=== PATIENT | male | born 1995 | race Caucasian/White ===

== ENCOUNTER → 2018-02-22 | Outpatient (REF) | payer BC | LOC: M SFHCLERA 11:09 | DX: R53.81 Other malaise (principal) ==

== ENCOUNTER → 2018-02-22 | Outpatient (CLI) | payer BC | LOC: M LRY 11:14 | DX: R06.2 Wheezing (principal) | CPT/HCPCS: 71046 ==

== ENCOUNTER → 2018-04-04 | Outpatient (REF) | payer BC | LOC: M SFHCLERA 18:48 | PROVIDERS: ATTEND Physician Assistant | DX: R50.9 Fever, unspecified (principal) ==

== ENCOUNTER → 2018-04-26 | Outpatient (CLI) | payer SELFPAY ==
--- NOTE | 2018-04-26 13:18 | REP ---
RIGHT SCAPULA, TWO VIEWS: HISTORY: Injury. There is no acute fracture or dislocation. The joint spaces are normal in appearance. IMPRESSION:There is no acute fracture or dislocation. Electronically Signed by Storm Pavon MD 04/26/2018 01:19 P
--- NOTE | 2018-04-26 13:18 | REP ---
RIGHT SHOULDER, THREE VIEWS: HISTORY: Injury. There is no acute fracture or dislocation. The joint spaces are normal in appearance. IMPRESSION:There is no acute fracture or dislocation. Electronically Signed by Storm Pavon MD 04/26/2018 01:19 P
== END ==
LOC: M LRY 12:13
PROVIDERS: ATTEND Nurse Practitioner Family
DX: M25.511 Pain in right shoulder (principal)

== ENCOUNTER → 2019-04-20 | Outpatient (REF) | payer BC | LOC: M SFHCLERA 10:56 | PROVIDERS: ATTEND Nurse Practitioner Family | DX: R68.89 Other general symptoms and signs (principal) ==